=== PATIENT | female | born 1950 | race Caucasian/White ===

== ENCOUNTER 2021-06-10 00:12 | Day surgery (SDC) | payer MEDICARE, SELFPAY ==
[2021-06-05 15:04] VITALS: BMI 37.8
--- NOTE | 2021-06-05 15:21 | PC.NURSE ---
Report to the Outpatient Waiting Room, entrance under the green pavilion located off [facility], at time __0900 on date __06/10/21 . OR Time: __1100 . - You and your visitor will be asked a series of questions to screen for COVID 19 for your protection. - A mask is required within the hospital. - Only one visitor is allowed at this time. Patient visitors will be guided where to wait when not with patient. Preoperative COVID Testing Requirements: No COVID Test needed if: (proof is required; if not received patient will have Rapid Test prior to entry) - Patient has received COVID Vaccine at least 14 days prior to procedure date or - Patient has positive COVID test result within last 90 days of surgery date. COVID Test needed if above criteria is not met If not COVID vaccinated a COVID test must be conducted within 72 hours of surgery and patient is asked to isolate self from time of testing until procedure. You will go to the [facility] for your COVID testing. The [facility] site is located at the corner of [address] [facility]. You will only be called if COVID results are positive and your surgeon may reschedule your elective surgery date. Patients may have clear liquids (water, carbonated beverages, clear teas, apple juice) until 3 hours prior to surgery with a maximum of 20 ounces. - No food from midnight until time of surgery - Infants may have breast milk until 4 hours before surgery, formula 6 hours prior to surgery. - Children will be allowed to drink immediately following surgery. If applicable, please bring a bottle or sippy cup to assist with drinking. Juice, water, soda, and popsicles are readily available. For infants on formula, please bring formula the day of surgery. Pacifiers are allowed. Take the following medications with a SIP of water the morning of surgery: ALBUTEROL & BUDESONIDE NEBULIZERS, CITALOPRAM, LEVOTHYROXINE, METOPROLOL Medications to discontinue per physician ALL VIT/SUPPLEMENTS 3 DAYS PRE-OP, PT CHECKING WITH DR ZARATE RE: IBUPROFEN Date to take last dose____06/07/21 Please no make-up, nail french, hairspray, perfume, deodorant, or body powder the day of surgery. No jewelry (including any body piercings) or valuables the day of surgery, leave them at home. Please take a shower or bath the night before, or the morning of, surgery with an antibacterial soap. Wear comfortable, loose fitting clothing. Children are encouraged to wear pajamas. - Jewelry must be removed prior to entering the operating room. Rings and piercings that are not removed may be cut off. - The hospital will not accept responsibility for valuables. - Please leave all valuables, including medications, at home the day of surgery. If you are going home after surgery, a licensed straddle bug driver must drive you home. - NO public transportation without another adult. - We recommend that an adult stay with you for 24 hours following discharge. - We also recommend that you do not drive, make important decision, drink alcoholic beverages, or take any drugs that were not prescribed by your health care provider for at least 24 hours after your discharge time. For Pediatric surgeries, we recommend two adults accompany the child home (only one inside the building at this time). Follow any additional instructions given to you from your surgeon. Telephone instructions given to ____PATIENT and asked if any additional questions and then verbalized understanding. Patient advised to call surgeon office or pre surgery nurse liaison [phone] if any additional questions.
--- NOTE | 2021-06-09 13:53 | P.PNAN_ITS ---
Anes - Initial Pre Proc Eval Procedure: Operation Date: 06/10/21 08:30 Proposed Procedures p Left Shoulder Arthroscopy with Subacromial Decompression with Rotator Cuff Repair - Jeffery Arrington MD Date/Time: 06/09/21 13:53 Surgeon: Jeffery Arrington MD Pre Op Diagnosis: left shoulder pain Patient Data Age: 71 Gender: F Height: 1.73 m Weight: 113 kg Allergies Allergy/AdvReac Type Severity Reaction Status Date / Time hydroxychloroquine AdvReac DECREASED Verified 06/10/21 06:33 [From Plaquenil] VISION Home Medications Medication Instructions Recorded Confirmed Type Ca-D3-mag cx-lpfm-jqi-asha-bor 1 tablet PO DAILY 06/05/21 06/10/21 History [Calcium 600-D3 Plus (mag-zinc)] albuterol sulfate 2.5 mg INHALATION TID 06/05/21 06/10/21 History amitriptyline 150 mg PO HS 06/05/21 06/10/21 History budesonide 0.5 mg INHALATION BID 06/05/21 06/10/21 History cholecalciferol (vitamin D3) 100 mcg PO DAILY 06/05/21 06/10/21 History citalopram 40 mg PO QAM 06/05/21 06/10/21 History hydrocodone-acetaminophen 1 tablet PO Q6-8H PRN 06/05/21 06/05/21 History ibuprofen 600 mg PO BID 06/05/21 06/10/21 History levothyroxine [Euthyrox] 100 mcg PO QAM 06/05/21 06/10/21 History metoprolol tartrate 25 mg PO BID 06/05/21 06/10/21 History omeprazole 40 mg PO DAILY 06/05/21 06/10/21 History vit C,H-Vb-temdb-lutein-zeaxan 1 tablet PO BID 06/05/21 06/10/21 History [PreserVision AREDS-2] Patient hx anesthesia problems: none Family hx anesthesia problems: none Results Review: All pre-operative results and documents have been reviewed as part of the pre-operative evaluation. [facility] Past Medical History Medical History (Updated 06/09/21 @ 13:55 by Juancho Sawyer MD) Anxiety Arthritis COPD (chronic obstructive pulmonary disease) Depression Fibromyalgia HTN (hypertension) Hypothyroidism Lupus (systemic lupus erythematosus) Rheumatoid arthritis Social History Social History Smoking status: Never smoker Substance use: never Living arrangements: with family Additional living arrangements comments: [facility] Spiritual care concerns: No Anes - Eval Final PreProcedure Day of Procedure 06/09/21 13:53 Patient weight: obese Heart: regular rate and rhythm Lungs: clear to auscultation and normal air movement Airway: Mallampati scale class II Neurological: alert and oriented Last oral intake: >/= 8 hours ASA classification: III Emergent: no Anesthetic plan: proceed Anesthesia type and monitoring: general ETT Results Review: All pre-operative results and documents have been reviewed as part of the pre-operative evaluation. Informed Consent: The patient's anesthetic plan and its attendant risks and benefits were discussed with the patient/family/POA. Questions were solicited and answers provided to the satisfaction of the patient/family/POA.
--- NOTE | 2021-06-09 13:55 | WPDANESPNB ---
Anes - Peripheral Nerve Block Date/Time: 06/09/21 13:56 I have discussed with the patient/family/POA the placement of a peripheral nerve block for post-operative pain management, including associated risks, benefits, complications, and side effects. Alternative methods of post-operative analgesia were detailed. Questions were solicited and answers provided to the satisfaction of the patient/family/POA. Time-Out: A pre-procedural Time-Out was completed immediately before starting the procedure and confirmed: Patient Identification, Site, Procedure, Patient Position and the Availability of Requisite Equipment. Clinical Indications: Acute post-operative pain management requested by the operative surgeon. Nerve Block Insertion Note Needle: 22 gauge, stimulating, insulated echogenic needle.
[2021-06-10] VITALS (13 sets, daily range): BP systolic 103–150; BP diastolic 48–82; PULSE 60–72; RESP 12–20; TEMP 36.3–36.5; O2SAT 96–100
[2021-06-10] MEDS: ACETAMINOPHEN 500 MG TABLET 1000 MG PO (06:38)
[2021-06-10] MEDS: LACTATED RINGERS 1,000 ML 30 ML IV CONT ×2 (07:12→10:36)
[2021-06-10] MEDS: KETOROLAC 15 MG/ML VIAL (*BKC) IV PUSH (07:13)
--- NOTE | 2021-06-10 08:27 | WPDHPUPDATE1 ---
History and Physical Update Update Date/Time: 06/10/21 08:27 History and Physical has been reviewed, including an updated exam of the patient. There are NO changes in the patient's condition. Risks, benefits, and alternatives have been discussed and questions answered. Patient agrees to proceed with procedure.
[2021-06-10] MEDS: ceFAZolin 2 GM/D5W 50 ML 2 GM/50 ML BAG IVPB (08:28)
[2021-06-10] MEDS: BUPIVACAINE HCL 0.25% PF 30 ML VIAL INFILTRATE (09:26)
--- NOTE | 2021-06-10 10:32 | W.PM.PROC2 ---
Procedure Note - Detailed Date of Procedure 06/10/21 Pre-op Diagnosis left shoulder pain; osteoarthritis; supraspinatus rotator cuff tear; anterior acromial impingement Post-op Diagnosis same Procedure Performed 1. Diagnostic and operative shoulder arthroscopy of Left Shoulder 2. Arthroscopic assisted rotator cuff repair with one anchor 3. Debridement of the Glenohumeral space 4. Bursectomy and debridement of the subacromial space 5. Anterior acromioplasty Surgeon Jeffery Arrington MD [employer] Anesthesia general Description of Procedure The patient was identified and brought to the operating room. She was placed on the operating room table which was a beach chair table. After general anesthesia she was positioned into the beach chair. A surgical time-out was performed and we confirmed that this was the correct patient, the correct side, the priscilla that I had placed on her shoulder was visible at the time of the incision, she had received appropriate IV antibiotics as necessary for the proposed procedure, all the equipment necessary to perform the procedure was available. The staff concurred. We then sterilely prepped and draped in the usual fashion. Her head was secured in a comfortable-appearing position. All the bony landmarks were padded. A kidney rest pad was utilized to stabilize her upper body. The strap was across her thighs. I then marked the bony landmarks on her skin. The acromion, the clavicle, the AC joint, the coracoid, and the arthroscopy portal 2 cm inferior and 2 cm medial from the posterolateral corner of the acromion was marked. I then infiltrated the skin with 1% lidocaine with epinephrine. The subacromial space and the track through the deltoid was injected with arthroscopy solution which has a 1 to [id number] epinephrine dilution. Posterior portal was established. A glenohumeral arthroscopy was performed. The anterior triangle was determined and a spinal needle was placed and then a small incision was made and the shaver was placed through the anterior portal. The glenohumeral joint had some arthritic changes and there was a significant amount of synovitis and degenerative fraying in the glenoid he will joint that was debrided. This required an extensive debridement of the labrum frayed areas the articular surface on both the humerus and the glenoid and the undersurface of the rotator cuff tear. The articular surface of the humerus had some grade 3-4 chondrosis. The glenoid had some grade 3-4 chondrosis as well. The posterior rotator cuff infraspinatus and teres minor was relatively well attached. There was a supraspinatus tear just posterior to the biceps tendon. The intra-articular portion of the biceps tendon had some minimal fraying on it but was otherwise robust in appearance and well attached at the glenoid. The glenoid labrum had fraying and tearing that was debrided. The scope was then placed into the subacromial space and extensive bursectomy was performed using the full-radius resector and also the bipolar electrocautery 90 degree Wand. The subacromial tissues were debrided until the anterior lateral corner was seen. The anterior edge of the acromion was then denuded of soft tissues and the CA ligament. The lateral border of the acromion was cleared as well. A lateral portal was then established the rotator cuff was then identified and debrided this was a mainly supraspinatus tear in the anterior 2/3. There was a cyst at the articular margin with the Guhl greater tuberosity. This was about a 5 mm cyst in diameter. It was determined that my lateral anchor could be far enough away from the cyst to have good purchase. The cyst did however preclude a double row. Once the rotator cuff tear had been debrided and the edges of the tear and the character of the tear were well understood a SutureTape was placed with 1 limb anterior the other posterior to the tear. This provided a horizontal mattress stitch that was brought t
[2021-06-10] MEDS: fentaNYL CITRATE INJ (*CRX) 100 MCG/2 ML VIAL 25 MCG IV PUSH ×6 (11:10→11:48)
== END 2021-06-10 13:34 | disposition home or self-care (01) ==
PROVIDERS: PCP Family Medicine; Visit Provider Specialist
PROC: (CPT 29805; principal; 2021-06-10 08:30)
DX: M75.102 Unspecified rotator cuff tear or rupture of left shoulder, not specified as traumatic (principal); M75.42 Impingement syndrome of left shoulder; M19.012 Primary osteoarthritis, left shoulder; J44.9 Chronic obstructive pulmonary disease, unspecified; I10 Essential (primary) hypertension; E03.9 Hypothyroidism, unspecified; F41.8 Other specified anxiety disorders; M79.7 Fibromyalgia; M06.9 Rheumatoid arthritis, unspecified; M32.9 Systemic lupus erythematosus, unspecified; Z79.51 Long term (current) use of inhaled steroids; E66.9 Obesity, unspecified; Z68.39 Body mass index [BMI] 39.0-39.9, adult
CPT/HCPCS: 29827; 29823; A9270; J0690; J1100; J1885; J2250; J2405; J2704; J3010; J7120